=== PATIENT | female | born 2005 | race Caucasian/White ===

== ENCOUNTER 2023-06-09 17:33 | Outpatient (REF) | payer MEDICAID, SELFPAY ==
[2023-06-10 05:26] LABS: CT PCR NOT DETECTED (Not Detect.); NG PCR NOT DETECTED (Not Detect.)
[2023-06-10 12:51] LABS: BV Int Neg Control Negative (Negative); BV Int Pos Control Positive (Positive)
== END 2023-06-09 17:34 | disposition home or self-care (01) ==
LOC: HO.HHCLNP 17:33
PROVIDERS: Visit Provider Emergency Medicine
DX: R30.0 Dysuria (principal); R39.9 Unspecified symptoms and signs involving the genitourinary system
CPT/HCPCS: 0353U; 87086; 87480; 87510; 87660

== ENCOUNTER 2023-06-26 14:16 | Outpatient (REF) | payer OTHER, SELFPAY | END 2023-06-26 14:17 | disposition home or self-care (01) | LOC: HO.US 14:16 | PROVIDERS: Visit Provider Emergency Medicine | DX: R59.0 Localized enlarged lymph nodes (principal) | CPT/HCPCS: 76536 ==

== ENCOUNTER 2023-07-19 14:26 | Outpatient (AMB) | payer OTHER, SELFPAY ==
--- NOTE | 2023-07-19 14:28 | MHC.OFFVIS ---
Intake Vital Signs 07/19/23 14:38 Weight 103 lb BP 110/69 Blood Pressure Location Rt brachial Position Sitting Pulse 91 Intake Visit Reasons: cervical lymphadenopathy Intake Note: This patient presents for an assessment for cervical lymphadenopathy. Patient c/o; reports sore throat for several weeks , denies Dysphagia. Delivery Specialist Required: No Accompanied by: Other Relationship Allergies No Known Allergies Allergy (Unverified 07/19/23 14:40) Medication List - Last Reconciled 07/19/23 by Maikel Nevarez MD hydroxyzine pamoate 50 mg PO BID HPI cervical lymphadenopathy HPI Details 18-year-old female referred for cervical lymphadenopathy. She says she felt this lymph node on the lateral aspect of her right neck 3 weeks ago. She went to her doctor and she had a CAT scan showing borderline enlarged lymph nodes.She denies any fever or chills. She denies any weight loss. She denies any night sweats. She states that she did have a mild sore throat for a few weeks to feeling this lymph node. She feels well overall and states that she is in good health. [facility] Medical History (Updated 07/19/23 @ 14:59 by Maikel Nevarez MD) Cervical adenopathy Surgical History No pertinent past surgical history Family History Maternal Grandmother Cancer Review of Systems Const Denies chills and Denies fever(s) Card Denies chest pain, Denies dyspnea and Denies dyspnea on exertion Resp Denies cough, Denies dyspnea and Denies dyspnea on exertion GI Denies hematochezia and Denies change in bowel habits Denies hematuria Musc Denies back pain and Denies limited range of motion Neuro Denies focal weakness and Denies convulsions Psych Denies depression and Denies mood swings Physical Exam Vital Signs: Last Vital Signs Pulse 91 07/19/23 14:38 BP 110/69 07/19/23 14:38 Const General: comfortable and no acute distress Orientation/consciousness: patient oriented x3 HEENT Other: No lesions in the oral mucosa, no dental caries Neck Other: One small palpable lymph node on the lateral aspect the right neck posteriorly, about 5 mm in size, fairly mobile well-defined Neck: Yes no lymphadenopathy Resp Auscultation: clear to auscultation bilaterally Cardio Rhythm: regular rhythm GI Palpation (GI): Soft to palpation, nontender and no guarding Neuro General: patient oriented x3 Assessment & Plan Assessment & Plan (1) Cervical adenopathy: Code(s): R59.0 - Localized enlarged lymph nodes Plan: She has 1 mobile lymph node bundle aspect of the right neck posteriorly. This is about 5 mm in size. I told her this is likely reactive. I assured her that this should resolve on its own. She does not require any biopsy at this time. I did tell her that if this enlarges, then she should follow-up in the office. She may benefit from a follow-up ultrasound in 3 months recommended by the radiologist if there is persistence of this lymph node. Her mother was with her during the visit. Coding Level of Care Code New Pt Level 3 (66387) Diagnoses Cervical adenopathy R59.0
[2023-07-19 14:38] VITALS: BP 110/69; PULSE 91
== END 2023-07-19 14:56 | disposition home or self-care (01) ==
PROVIDERS: PCP Student in an Organized Health Care Education/Training Program; Referring Provider Emergency Medicine; Visit Provider Surgery
DX: R59.0 Localized enlarged lymph nodes (principal)
CPT/HCPCS: 99203

== ENCOUNTER → 2023-07-19 14:26 | Outpatient (BNVA) | payer OTHER, SELFPAY | PROVIDERS: PCP Student in an Organized Health Care Education/Training Program; Referring Provider Emergency Medicine; Visit Provider Surgery ==